=== PATIENT | female | born 1995 | race African-American/Black ===

== ENCOUNTER 2022-05-22 18:42 | Emergency (ER) | payer OTHER, SELFPAY ==
[2022-05-22 19:29] VITALS: BP 148/79; PULSE 81; RESP 14; TEMP 37.1; O2SAT 99; BMI 33.3
[2022-05-22 20:07] LABS: Strep A Nucleic Acid Negative (Negative)
[2022-05-22 20:19] LABS: COVID-19 Test Negative (Negative); IDNOW Serial# 16C4AD1C
--- NOTE | 2022-05-22 21:32 | ED.GENADULT ---
HPI - General Adult General Chief complaint: General Medical Stated complaint: vomiting x2 days Time Seen by Provider: 05/22/22 20:53 Source: patient Mode of arrival: ambulatory Limitations: no limitations History of Present Illness HPI narrative: 26 yo female presents to the ER for evaluation of nausea vomiting that started last night around fiber 18:00. She reports multiple episodes of nonbloody, nonbilious vomiting throughout last night and today. No abdominal pain or diarrhea. No fever or chills. She states the last time she threw up was about 4-1/2 hours ago. She is now hungry and feeling better. She has been able to tolerate oral liquids today but not food. She states her daughter is sick but is not vomiting. No other sick contacts. No concern for food borne illness. She reports her last menstrual period was 2 weeks ago, she denies chance of and has had her tubes tied. MD complaint: vomiting Onset (ago): day(s) (1) Location: abdomen Radiation: non-radiation Severity: moderate Relieving factors: none Exacerbating factors: eating Associated symptoms: malaise, nausea/vomiting and weakness Treatments prior to arrival: none Related Data Previous Rx's Medication Instructions Recorded ondansetron 4 mg disintegrating 4 mg PO TID PRN nausea and 05/22/22 tablet vomiting #5 tabs Allergies Allergy/AdvReac Type Severity Reaction Status Date / Time amoxicillin [AMOXICILLIN] Allergy Unknown HIVES Unverified 06/29/20 16:33 Review of Systems Review of Systems: Constitutional: No Fever, No Chills ENT/Mouth: + sore throat, No Rhinorrhea, No Swallowing Difficulty Cardiovascular: No Chest Pain, No SOB, No Orthopnea, No Edema Respiratory: No Cough, No Sputum, No Wheezing, No dyspnea Gastrointestinal: + Nausea, + Vomiting, No Diarrhea, No abdominal Pain, No Hematochezia, No Melena Genitourinary: No Dysuria, No Urinary Frequency, No Hematuria Musculoskeletal: No joint pain, No Myalgias Skin: No Skin Lesions, No rash Neuro: + Weakness, No Numbness, No Dizziness, No Headache Psych: No Anxiety/Panic, No Depression Heme/Lymph: No Bruising, No Lymphadenopathy Endocrine: No Polyuria, No Polydipsia PMFSH Social History Social History Advance Directives: No Advance Directives Information Provided: No Physical Exam ED Vital Signs: Vital Signs - 24 hr 05/22/22 19:29 Temperature 98.8 F Pulse Rate 81 Respiratory Rate 14 Blood Pressure 148/79 H Pulse Oximetry 99 Oxygen Delivery Method Room Air BMI result Body Mass Index 33.3 Appearance: Alert. Oriented X3. No acute distress. Eyes: Pupils equal, round and reactive to light. ENT: Pharynx normal. Neck: Normal inspection. Neck supple. CVS: Normal heart rate and rhythm. Pulses normal. Respiratory: No respiratory distress. Breath sounds normal. Abdomen: Soft and nontender. +BS x4 Skin: Skin warm and dry. Normal skin color. Normal skin turgor. No rashes. Extremities: No lower extremity edema. Neuro: Oriented X 3. No motor deficit. No sensory deficit. Course Course Course Narrative: 26-year-old female presents to the ER for evaluation of 24 hours of vomiting. Last episode of vomiting was 4-1/2 hours ago and she is now starting to feel hungry. She is negative for COVID-19 a negative strep throat. Her physical exam and vital signs are unremarkable. Will give her p.o. trial. Reevaluation(s) Reevaluation #1: Patient tolerating p.o. trial and feeling better. At this time she is stable for discharge home, most likely gastroenteritis. Medical Decision Making Lab Data Labs: Lab Results 05/22/22 05/22/22 Range/Units 19:51 19:51 COVID-19 (DOUGIE) Negative (Negative) COVID-19 Clin Com See Note S. pyogenes GrpA RAS Negative (Negative) Discharge Plan Discharge Clinical Impression: Gastroenteritis Patient Disposition: Home, Self-Care Instructions: Gastroenteritis (ED) Additional Instructions: You were negative for Strep and COVID. You most likely have a viral GI bug also known as gastrooenteritis. Treatment is supportive care, symptoms usually resolve on their own in 48-72 hours. Recommend rest and plenty of oral hydration. Stick to a bland diet like soup and toast while you are not feeling well. Take the prescribed medication as needed for nausea. Recommend over the counter Pepto Bismol or Imodium for upset stomach and diarrhea. Follow up with your doctor as needed. If you develop new or worsening symptoms call 911 or come back to the ER for further evaluation. Prescriptions: New ondansetron 4 mg tablet,disintegrating 4 mg PO TID PRN (Reason: nausea and vomiting) Qty: 5 0RF
== END 2022-05-22 22:40 | disposition home or self-care (01) ==
PROVIDERS: Emergency Provider Emergency Medicine
DX: K52.9 Noninfective gastroenteritis and colitis, unspecified (principal); R11.2 Nausea with vomiting, unspecified; Z20.822 Contact with and (suspected) exposure to COVID-19
CPT/HCPCS: 87635; 87651; 99281; 99283